=== PATIENT | male | born 1965 | race Caucasian/White ===

== ENCOUNTER 2020-03-27 08:23 | Emergency (ER) | payer OTHER, SELFPAY ==
[2020-03-27 08:28] VITALS: BP 156/94; PULSE 100; RESP 16; TEMP 36.9; O2SAT 98
--- NOTE | 2020-03-27 09:11 | ED.GENADULT ---
HPI - General Adult General Chief complaint: Extremity Problem,Nontraumatic Stated complaint: jaw and ear pain Time Seen by Provider: 03/27/20 09:11 Source: patient and RN notes reviewed Mode of arrival: ambulatory Limitations: no limitations History of Present Illness HPI narrative: 55-year-old male presents with complaints of left otalgia and left jaw swelling for the past 4-5 days. Denies drainage, decrease hearing, or tinnitus. Denies injury to ear or jaw. Denies rhinorrhea and nasal congestion. Denies cough or chest congestion. No high fevers or chills. Denies nausea, vomiting, and dizziness. The patient reports he have not been diagnosed with COVID-19. The patient reports he is not waiting for the results of a COVID-19 lab test. The patient reports he do not have fever, chills, weakness, fatigue, myalgia, or facial swelling. The patient reports he do not have a new or worsening cough or shortness of breath. Denies chest pain. The patient reports he do not have any rhinorrhea, congestion, sore throat, nausea, vomiting, abdominal pain, and diarrhea. Tolerating po intake well. Denies recent traveling. Denies concerns for COVID-19 or exposures been home since [id number] order except for essential household needs and return home. At this time, patient is not suspected of having COVID-19. Complains of right hip for the past 1-2 weeks. Rodolfo says he notice the pain after cutting grass. No recent injuries. Denies radiation of pain. No numbness or tingling or bleeding. No swelling. No loss of mobility. Exacerbating factor consist of being weight to leg. Denies recent travel or long car rides. History of DVT or PE. No chest pain or dyspnea. No fever or chills. Tolerating liquids well. Remains active. Some parts of this dictation were generated by voice recognition software and may contain typographical and/or grammatical inaccuracies. Related Data Home Medications Medication Instructions Recorded Confirmed albuterol sulfate [ProAir HFA] 1 puff INHALATION Q4H PRN 03/27/20 03/27/20 aspirin 81 mg PO DAILY 03/27/20 03/27/20 bupropion HCl 150 mg PO BID 03/27/20 03/27/20 ergocalciferol (vitamin D2) 1,250 mcg PO WEEKLY 03/27/20 03/27/20 fluticasone propionate [Flovent 1 inh INHALATION Q4H 03/27/20 03/27/20 HFA] insulin glargine [Lantus Solostar 25 unit SUBCUT BID 03/27/20 03/27/20 U-100 Insulin] lisinopril 5 mg PO DAILY 03/27/20 03/27/20 metoprolol succinate 50 mg PO DAILY 03/27/20 03/27/20 pioglitazone 45 mg PO DAILY 03/27/20 03/27/20 rosuvastatin 10 mg PO DAILY 03/27/20 03/27/20 Allergies Allergy/AdvReac Type Severity Reaction Status Date / Time Penicillins Allergy Unknown Verified 03/27/20 08:52 Review of Systems Review of Systems: Narrative: CONSTITUTIONAL: Denies fever, chills, sweats. EYES: Denies visual changes, redness, discharge. ENT: Denies sore throat, ear drainage, decrease hearing, rhinorrhea, congestion. Complains of LT otalgia, LT jaw. CARDIOVASCULAR: Denies chest pain, palpitations, edema. RESPIRATORY: Denies dyspnea, wheezing, cough. GASTROINTESTINAL: Denies abdominal pain, nausea, vomiting, diarrhea. GENITOURINARY: Denies dysuria, hematuria, abnormal discharge. SKIN: Denies rash or itching. MUSCULOSKELETAL: Denies acute back pain or myalgia. Complains of RT hip pain. NEUROLOGIC: Denies numbness or focal weakness. PSYCHIATRIC: Denies anxiety or depression. All systems reviewed & are unremarkable except as noted in HPI and below. [facility] Past Medical History Medical History (Updated 03/28/20 @ 00:00 by Background Dasusan) COPD (chronic obstructive pulmonary disease) Diabetes Hypercholesteremia Hypertension Myocardial infarct 2013 Surgical History Surgical History (Updated 03/27/20 @ 13:24 by FABIANA Gomes) History of cardiac catheterization cardiac stents placed Family History Family History (Updated 03/27/20 @ 13:25 by FABIANA Gomes) Father
[2020-03-27] MEDS: KETOROLAC (*BKC) 60 MG/2 ML VIAL IM (09:29)
== END 2020-03-27 09:50 | disposition home or self-care (01) ==
PROVIDERS: Emergency Provider Nurse Practitioner Family
DX: H66.92 Otitis media, unspecified, left ear (principal); M25.551 Pain in right hip; Z79.82 Long term (current) use of aspirin; Z79.4 Long term (current) use of insulin; J44.9 Chronic obstructive pulmonary disease, unspecified; E11.9 Type 2 diabetes mellitus without complications; E78.00 Pure hypercholesterolemia, unspecified; I10 Essential (primary) hypertension; I25.2 Old myocardial infarction; Z95.5 Presence of coronary angioplasty implant and graft; F17.210 Nicotine dependence, cigarettes, uncomplicated
CPT/HCPCS: 96372; 99213; G0463; J1885

== ENCOUNTER 2022-04-23 18:47 | Emergency (ER) | payer OTHER, SELFPAY ==
[2022-04-23 19:08] VITALS: BP 156/99; PULSE 112; RESP 20; TEMP 36.6; O2SAT 98
[2022-04-23 19:18] VITALS: BP 150/90
--- NOTE | 2022-04-23 19:31 | ECG_ITS ---
Measurements Intervals [place] Rate: 100 P: 41 RI: 159 QRS: 77 QRSD: 98 T: -52 QT: 332 QTc: 430 Interpretive Statements SINUS TACHYCARDIA POSSIBLE LEFT ATRIAL ENLARGEMENT [-0.1mV P WAVE IN V1/V2] NONSPECIFIC ST AND T-WAVE ABNORMALITY ABNORMAL ECG NO PREVIOUS ECG AVAILABLE FOR COMPARISON Electronically Signed On 04-24-2022 16:40:39 CDT by Ravi Mcfarland M.D.
--- NOTE | 2022-04-23 19:39 | ED.DIZZY ---
HPI - Dizziness General Chief Complaint: Dizziness Stated Complaint: blood pressure is up Time Seen by Provider: 04/23/22 19:39 Source: patient Mode of arrival: ambulatory Limitations: no limitations History of Present Illness HPI Narrative: 57 yo M with hx of NM, HTN, recent CABG presents with c/o feeling dizzy and sweating while walking around [employer]. reports now he is feeling better. Had steroid injection to R knee today and was told BP was high at that appt. When feeling dizzy earlier he was concerned BP higher so he came here to have it checked. Denies CP and SOB. 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 All systems reviewed and negative except as noted above. Related Data Home Medications Medication Instructions Recorded Confirmed albuterol sulfate 90 mcg/actuation 1 puff inhalation Q4H PRN sob 03/27/20 03/27/20 aerosol inhaler (ProAir HFA) aspirin 81 mg tablet,delayed 81 mg PO DAILY 03/27/20 03/27/20 release bupropion HCl 150 mg tablet,12 hr 150 mg PO BID 03/27/20 03/27/20 sustained-release ergocalciferol (vitamin D2) 1,250 1,250 mcg PO WEEKLY 03/27/20 03/27/20 mcg (50,000 unit) capsule fluticasone propionate 44 1 inh inhalation Q4H 03/27/20 03/27/20 mcg/actuation HFA aerosol inhaler (Flovent HFA) insulin glargine 100 unit/mL (3 25 unit subcut BID 03/27/20 03/27/20 mL) subcutaneous pen (Lantus Solostar U-100 Insulin) lisinopril 5 mg tablet 5 mg PO DAILY 03/27/20 03/27/20 metoprolol succinate 50 mg 50 mg PO DAILY 03/27/20 03/27/20 tablet,extended release 24 hr pioglitazone 45 mg tablet 45 mg PO DAILY 03/27/20 03/27/20 rosuvastatin 10 mg tablet 10 mg PO DAILY 03/27/20 03/27/20 Allergies Allergy/AdvReac Type Severity Reaction Status Date / Time Penicillins Allergy Unknown Verified 03/27/20 08:52 Review of Systems Review of Systems: CONSTITUTIONAL: Denies fever, chills. Reports sweats. EYES: Denies visual changes, redness, or discharge. ENT: Denies rhinorrhea, congestion, sore throat, or otalgia. CARDIOVASCULAR: Denies chest pain, palpitations, or edema. RESPIRATORY: Denies cough or dyspnea. GASTROINTESTINAL: Denies abdominal pain, nausea, vomiting, or diarrhea. GENITOURINARY: Denies dysuria or hematuria. SKIN: Denies rash or itching. MUSCULOSKELETAL: Denies back pain, joint pain, or myalgia. NEUROLOGIC: Denies headache, numbness, or weakness. Reports dizziness PSYCHIATRIC: Denies anxiety or depression. All other systems reviewed are negative, except as documented in HPI. [facility] Past Medical History Medical History (Updated 04/23/22 @ 19:48 by Glenna Hall NP) COPD (chronic obstructive pulmonary disease) Diabetes Hypercholesteremia Hypertension Myocardial infarct 2013 Surgical History Surgical History (Updated 03/27/20 @ 13:24 by FABIANA Gomes) History of cardiac catheterization cardiac stents placed Family History Family History (Updated 03/27/20 @ 13:25 by FABIANA Gomes) Father No problems noted. Mother No problems noted. Social History Social History (Updated 03/27/20 @ 09:23 by FABIANA Gomes) Smoking packs per day: 1 Smoking cigarettes per day: 20.0 Years smoked: 15 Smoking pack-years: 15.00 Smoking status: Current every day smoker Tobacco type: cigarettes Second hand tobacco smoke exposure: No Alcohol intake: never Substance use: never Additional occupation/education comments: Disable Gender identity (if verbalized by the patient): Male Comments At time of signature, agree with nursing past medical, surgical, social and family history. There is no relevant family history pertinent to the presenting complaint. Exam Narrative: GENERAL: This is a well-nourished, well-developed patient, in no apparent distress. HEAD: normocephalic, atraumatic. EYES: PERRL. Sclera clear/white. Vision is grossly intact. EARS: External ears normal NOSE: External nose normal NECK
== END 2022-04-23 19:48 | disposition left against medical advice (07) ==
PROVIDERS: Emergency Provider Nurse Practitioner Family
DX: R42 Dizziness and giddiness (principal); R94.31 Abnormal electrocardiogram [ECG] [EKG]; J44.9 Chronic obstructive pulmonary disease, unspecified; E11.9 Type 2 diabetes mellitus without complications; E78.00 Pure hypercholesterolemia, unspecified; I10 Essential (primary) hypertension; I25.2 Old myocardial infarction; F17.210 Nicotine dependence, cigarettes, uncomplicated; Z95.5 Presence of coronary angioplasty implant and graft
CPT/HCPCS: 93005; 99213; G0463